=== PATIENT | female | born 1995 | race African-American/Black ===

== ENCOUNTER 2018-05-10 00:50 | Emergency (ER) | payer SELFPAY ==
[~2018-05-10] VITALS: Ht 167.6 cm; Wt 56.7 kg
[2018-05-10] MEDS ORDERED: Morphine Sulfate 4mg/ml Inj IVP ONE ×2 (01:15→02:00)
[2018-05-10 01:18] LABS: BASOPHILS % (AUTO) 2.2 % (0.0-2.0); EOSINOPHILS % (AUTO) 2.9 % (0.0-3.0); HEMATOCRIT 45.4 % (37.0-47.0); MEAN CORPUSCULAR VOLUME 93 FL (80-99); MONOCYTES % (AUTO) 5.4 % (1.0-10.0); NEUTROPHILS % (AUTO) 66.5 % (45.0-75.0); PLATELET COUNT 272 K/UL (150-450); WHITE BLOOD COUNT 8.2 K/UL (4.8-10.8)
[2018-05-10 01:30] LABS: ANION GAP 19 mmol/L (5-15); BLOOD UREA NITROGEN 6 mg/dL (7-18); CALCIUM 9.7 MG/DL (8.5-10.1); CARBON DIOXIDE 20 MMOL/L (21-32); CHLORIDE 103 MMOL/L (98-107); POTASSIUM 3.6 MMOL/L (3.5-5.1); SODIUM 142 MMOL/L (136-145)
[2018-05-10 01:35] LABS: ALANINE AMINOTRANSFERASE 24 U/L (12-78); ALBUMIN 4.9 G/DL (3.4-5.0); ALBUMIN/GLOBULIN RATIO 1.2 (1.0-2.7); ALKALINE PHOSPHATASE 75 U/L (46-116); ASPARTATE AMINO TRANSFERASE 20 U/L (15-37); BILIRUBIN,TOTAL 0.7 MG/DL (0.2-1.0)
[2018-05-10 01:47] LABS: APPEARANCE,URINE CLEAR; BILIRUBIN, URINE NEGATIVE (NEGATIVE); COLOR,URINE PALE YELLOW; GLUCOSE, URINE (UA) NEGATIVE (NEGATIVE); KETONES,URINE 3+ (NEGATIVE); LEUKOCYTE ESTERASE ,URINE NEGATIVE (NEGATIVE); NITRITE,URINE NEGATIVE (NEGATIVE); PH,URINE 9 (4.5-8.0); PROTEIN,URINE 1+ (NEGATIVE); UROBILINOGEN,URINE NORMAL MG/DL (0.0-1.0)
[2018-05-10] MEDS ORDERED: Morphine Sulfate 4mg/ml Inj ONE (01:51)
[2018-05-10 02:15] VITALS: BP 132/90
--- NOTE | 2018-05-10 03:12 | Emergency Room Report ---
History of Present Illness General Chief Complaint: Abdominal Pain Source: Patient, Family Member Present Illness HPI Is a 22-year-old female with no past medical history. She presents with chief complaint abdominal pain. Onset was tonight. Pain is severe. 10 out of 10. She has multiple episode vomiting. No diarrhea. Sharp and cramping. Had this episode twice before. Unknown etiology. Did have a ata tonight with mom. Nothing made it better. Nothing made it worse. Allergies: Coded Allergies: No Known Allergies (Unverified , 05/10/18) Patient History Past Medical History: see triage record, old chart reviewed Past Surgical History: other Pertinent Family History: none Social History: Denies: smoking Last Menstrual Period: unknown Now: No Immunizations: other Reviewed Nursing Documentation: PMH: Agreed; PSxH: Agreed Nursing Documentation-PMH Past Medical History: No Stated History Review of Systems Eye: Denies: eye pain, blurred vision ENT: Denies: ear pain, nose congestion, throat swelling Respiratory: Denies: cough, shortness of breath Cardiovascular: Denies: chest pain, palpitations Gastrointestinal: Reports: abdominal pain, nausea, vomiting; Denies: diarrhea Musculoskeletal: Denies: back pain, joint pain Skin: Denies: rash Neurological: Denies: headache, numbness Endocrine: Denies: increased thirst, increased urine Hematologic/Lymphatic: Denies: easy bruising All Other Systems: negative except mentioned in HPI Physical Exam Vital Signs Date Time Temp Pulse Resp B/P (MAP) Pulse Ox O2 Delivery O2 Flow Rate FiO2 05/10/18 00:53 97.9 77 18 128/61 99 Room Air 97.9 vitals normal Sp02 EP Interpretation: reviewed, normal General Appearance: well appearing, no apparent distress, alert Head: normocephalic, atraumatic Eyes: bilateral eye PERRL, bilateral eye EOMI ENT: hearing grossly normal, normal pharynx Neck: full range of motion, supple, no meningismus Respiratory: chest non-tender, lungs clear, normal breath sounds Cardiovascular #1: regular rate, rhythm, no murmur Gastrointestinal: normal bowel sounds, no mass, no organomegaly, no bruit, non- distended, tenderness Musculoskeletal: back normal, gait/station normal, normal range of motion Neurologic: alert, oriented x3 Psychiatric: mood/affect normal Skin: warm/dry Medical Decision Making Diagnostic Impression: Primary Impression: Abdominal pain Qualified Codes: R10.84 - Generalized abdominal pain ER Course Patient presents with abdominal pain. This occurred after drinking small amount of ata that her mom made. This happen to her before with alcohol. No evidence of intoxication. May be a reaction to the alcohol itself. No evidence of any obstruction. No evidence of ectopic. No dysuria frequency to indicate UTI. She is better now. We'll discharge home. Lab Results Impression labs unremarkable CT/MRI/US Diagnostic Results CT/MRI/US Diagnostic Results : Imaging Test Ordered: CT abdomen and pelvis Impression Read by radiologist. Possible wall thickening throughout the colon. Last Vital Signs Date Time Temp Pulse Resp B/P (MAP) Pulse Ox O2 Delivery O2 Flow Rate FiO2 05/10/18 02:15 84 18 132/90 99 Room Air 05/10/18 00:53 97.9 97.9 Status: improved Disposition: HOME, SELF-CARE Condition: Stable Scripts Omeprazole Magnesium (PRILOSEC OTC) 20 Mg Tablet. 20 MG ORAL DAILY, #30 TAB Prov: DOUG ALEMAN M.D. 05/10/18 Patient Instructions: Abdominal Pain, Adult Additional Instructions: Stay away from alcohol. Follow-up with your doctor in 7 days. Return if symptom worsen. DOUG ALEMAN M.D. May 10, 2018 03:12
[2018-05-10] MEDS ORDERED: PRILOSEC OTC20 MG ORAL (03:27)
[2018-05-10 04:07] VITALS: BP 117/85
[2018-05-10 04:10] VITALS: BP 117/85
--- NOTE | 2018-05-10 10:19 | Diagnostic Imaging Report ---
Clinical Indication: Abdominal pain for 3 hours Technique: No oral contrast utilized, per emergency room physician request IV administration nonionic contrast. Venous phase spiral acquisition obtained through the abdomen and pelvis. Multiplanar reconstructions were generated. Total dose length product 397.85 mGycm. CTDIvol(s) 8.63 mGy. Dose reduction achieved using automated exposure control Comparison: none Findings: The appendix is normal. No evidence of diverticulosis or diverticulitis. There is equivocal mild wall thickening of the transverse colon, more likely artifact of under distention than real. No small bowel distention. There is a small amount of free pelvic fluid present. No free intraperitoneal air. Distal esophagus, stomach, duodenum are unremarkable. Unopacified bowel loops preclude exclusion of tubular lesion in the right adnexal region The liver demonstrates some focal fatty change in the usual location adjacent to the falciform ligament. There is unusual delayed opacification of the liver, despite opacification of the kidneys, renal collecting systems, and lower extremity veins. Gallbladder, bile ducts, pancreas, spleen, adrenals, kidneys are all unremarkable. Uterus and ovaries appear unremarkable. No pelvic mass or adenopathy otherwise. No retroperitoneal or mesenteric mass or adenopathy. The included lung bases are clear. The bones are unremarkable Impression: Equivocal mild colon wall thickening, most likely artifact of under distention but colitis a possibility No definite acute abnormality otherwise. Due to to the presence of unopacified bowel loops, hydrosalpinx on the right cannot be ruled out with any confidence. Consider pelvic ultrasound if there is high clinical suspicion for such Small amount of free pelvic fluid, probably physiologic Somewhat unusual asymmetric delay in opacification of the liver, significance uncertain but doubtful Other findings as noted, including focal fatty change in the medial segment left hepatic lobe This agrees with the preliminary interpretation provided overnight by [employer] [facility]. The CT scanner at [facility] is accredited by the [employer] and the scans are performed using protocols designed to limit radiation exposure to as low as reasonably achievable to attain images of sufficient resolution adequate for diagnostic evaluation.
== END 2018-05-10 04:10 | disposition home or self-care (01) ==
LOC: EDBD 00:50 → EMR 01:26
DX: R10.9 Unspecified abdominal pain (principal); R11.2 Nausea with vomiting, unspecified
CPT/HCPCS: 36415; 74177; 80053; 80307; 81003; 81025; 83690; 85025; 96361; 96374; 96375; 96376; 99284; J2270; J2405; Q9967